=== PATIENT | male | born 1950 | race Hispanic/Latino ===

== ENCOUNTER 2024-01-03 11:15 | Observation (INO) | payer MEDICARE, OTHER ==
[~2024-01-03] VITALS: Ht 160 cm; Wt 99.8 kg
[2024-01-03 12:17] LABS: BASOPHILS # (AUTO) 0.04 K/uL (0.00-0.20); BASOPHILS % (AUTO) 0.5 % (0.0-5.0); EOSINOPHILS # (AUTO) 0.16 K/uL (0.00-0.70); EOSINOPHILS % (AUTO) 1.9 % (0.0-8.0); HEMATOCRIT 38.7 % (42-54); LYMPHOCYTES # (AUTO) 2.6 K/uL (1.0-4.8); LYMPHOCYTES % (AUTO) 30.5 % (21.0-51.0); MEAN CORPUSCULAR HEMOGLOBIN 31.4 pg (27.0-33.0); MEAN CORPUSCULAR HGB CONC 35.1 g/dL (32.0-36.0); MEAN CORPUSCULAR VOLUME 89.4 fL (79-99); MONOCYTES # (AUTO) 0.6 K/uL (0.1-1.0); MONOCYTES % (AUTO) 6.6 % (3.0-13.0); NEUTROPHILS % (AUTO) 59.3 % (40.0-77.0); PLATELET COUNT (AUTO) 280 K/uL (130-400); RED BLOOD CELL COUNT(AUTO) 4.33 MIL/uL (4.50-6.20); WHITE BLOOD COUNT (AUTO) 8.4 K/uL (4.8-10.8)
[2024-01-03 12:20] LABS: ABG BASE EXCESS -0.2 mmol/L (-2.0-3.0); ABG HCO3 24.7 mmol/L (21.0-28.0); ABG OXYGEN SATURATION 96.7 % (95.0-99.0); ABG PCO2 42 mmHg (35-48); ABG PH 7.393 (7.35-7.450); PO2, ARTERIAL BG 88.5 mmHg (83.0-108.0); VENT MODE, BG RA (ROOM AIR)
[2024-01-03] MEDS: 0.9%NACL 1000ML 1,000 ML IV SCH ×2 (12:20→16:07)
[2024-01-03 12:36] LABS: ALBUMIN 3.8 g/dL (3.5-5.0); BILIRUBIN,TOTAL 0.6 mg/dL (0.2-1.0); CREATININE 1.1 mg/dL (0.5-1.5); MAGNESIUM 1.9 mg/dL (1.80-2.40); POTASSIUM 3.5 mmol/L (3.5-5.1); TOTAL PROTEIN, SERUM 6.9 g/dL (6.0-8.3)
[2024-01-03 12:56] LABS: APPEARANCE,URINE CLEAR (CLEAR); BILIRUBIN,URINE NEGATIVE (NEGATIVE); COLOR,URINE LIGHT-YELLOW (YELLOW); GLUCOSE, URINE (UA) >=1000 mg/dL (NEGATIVE); KETONES,URINE NEGATIVE (NEGATIVE); LEUKOCYTE ESTERASE ,URINE NEGATIVE Leu/uL (NEGATIVE); NITRATE,URINE NEGATIVE (NEGATIVE); OCCULT BLOOD,URINE NEGATIVE (NEGATIVE); PROTEIN,URINE 10 mg/dL (NEGATIVE); UROBILINOGEN,URINE 0.2 mg/dL (0.2-1.0)
[2024-01-03 13:06] LABS: ADD UA MICROSCOPIC YES
[2024-01-03 13:38] LABS: RAPID GROUP A STREP negative (NEGATIVE)
[2024-01-03 13:48] LABS: COVID19 (SARS ANTIGEN RAPID) PRESUMPTIVE NEGATIVE (NEGATIVE); INFLUENZA TYPE A Negative For Type A (NEGATIVE); INFLUENZA TYPE B Negative For Type B (NEGATIVE)
[2024-01-03 14:20] LABS: MUCUS,URINE RARE LPF (None Seen); SQUAMOUS EPITHELIAL CELL,UR RARE /HPF (0-2)
[2024-01-03] MEDS ORDERED: ACETAMINOPHEN 500 MG TABLET PO PRN (15:00)
[2024-01-03] MEDS ORDERED: HYDRALAZINE 20MG/ML VIAL IV PRN (15:00)
[2024-01-03] MEDS ORDERED: IPRATROPIUM/ALBUTEROL SULFATE 3 ML SOLUTION IH PRN (15:00)
[2024-01-03] MEDS ORDERED: ONDANSETRON 4MG INJ IVP PRN (15:00)
[2024-01-03 15:12] LABS: INR <= 0.93 (0.85-1.15); PROTHROMBIN TIME 10.5 SEC (9.6-11.6)
[2024-01-03 15:13] LABS: HEMOGLOBIN A1C 8.5 % (4.0-6.0); PARTIAL THROMBOPLASTIN TIME 27.2 SEC (26.3-35.5)
[2024-01-03 15:21] LABS: THYROID STIMULATING HORMONE 2.25 uIU/mL (0.36-3.74)
[2024-01-03] MEDS ORDERED: POTASSIUM CHLORIDE 20MEQ/100ML 100 ML IV PRN (16:30)
[2024-01-03] MEDS ORDERED: POTASSIUM CHLORIDE 10% ELIXIR 20 MEQ/15 ML UDCUP PO PRN (16:30)
[2024-01-03] MEDS: INSULIN HUMULIN R 100 UNIT/ML 3ML SQ SCH (16:37)
[2024-01-03] MEDS: LOSARTAN 50 MG TABLET PO SCH (17:20)
[2024-01-03] MEDS: AMLODIPINE 5 MG TAB PO SCH (17:20)
[2024-01-03] MEDS ORDERED: AMLO-257 PO (17:35)
[2024-01-03] MEDS ORDERED: LOSA100T59 PO (17:35)
[2024-01-03] MEDS ORDERED: BRIM5DRO21 OP (17:35)
[2024-01-03] MEDS ORDERED: TRAM50TA4 PO (17:35)
[2024-01-03] MEDS ORDERED: SITA100T12 PO (17:35)
[2024-01-03] MEDS ORDERED: PRAV40TA3 PO (17:35)
[2024-01-03] MEDS ORDERED: METO50TA18 PO (17:35)
[2024-01-03] MEDS ORDERED: METF-527 PO (17:35)
[2024-01-03] MEDS ORDERED: HYDR25TA PO (17:35)
[2024-01-03 19:30] VITALS: O2SAT 97
[2024-01-03 20:18] VITALS: BP 148/82; PULSE 60; RESP 18
[2024-01-03] MEDS: MAGNESIUM 2GM PREMIX 50ML 50 ML IV SCH (20:20)
[2024-01-03] MEDS: KCL 20 MEQ ERTAB PO PRN (20:21)
[2024-01-03] MEDS: PANTOPRAZOLE 40 MG TAB DR PO SCH (21:15)
[2024-01-03] MEDS: INSULIN GLARGINE 100 UNITS/ML 10 ML VIAL SQ SCH (21:17)
[2024-01-04 00:23] VITALS: BP 141/76; PULSE 60; RESP 18
[2024-01-04] MEDS ORDERED: BISACODYL 10 MG SUPP.RECT RC PRN (00:30)
[2024-01-04] MEDS: BISACODYL 10 MG SUPP.RECT RC ONE (00:55)
[2024-01-04 03:51] LABS: BASOPHILS # (AUTO) 0.05 K/uL (0.00-0.20); BASOPHILS % (AUTO) 0.5 % (0.0-5.0); EOSINOPHILS # (AUTO) 0.14 K/uL (0.00-0.70); EOSINOPHILS % (AUTO) 1.5 % (0.0-8.0); HEMATOCRIT 33.1 % (42-54); IMMATURE GRANULOCYTE ABSOLUTE 0.09 K/uL (0-1); LYMPHOCYTES # (AUTO) 3.3 K/uL (1.0-4.8); LYMPHOCYTES % (AUTO) 34.7 % (21.0-51.0); MEAN CORPUSCULAR HEMOGLOBIN 31.4 pg (27.0-33.0); MEAN CORPUSCULAR HGB CONC 34.7 g/dL (32.0-36.0); MEAN CORPUSCULAR VOLUME 90.4 fL (79-99); MONOCYTES # (AUTO) 0.9 K/uL (0.1-1.0); NEUTROPHILS % (AUTO) 53.3 % (40.0-77.0); PLATELET COUNT (AUTO) 263 K/uL (130-400); RED BLOOD CELL COUNT(AUTO) 3.66 MIL/uL (4.50-6.20); RED CELL DISTRIBUTION WIDTH 13.1 % (11.0-15.5); WHITE BLOOD COUNT (AUTO) 9.4 K/uL (4.8-10.8)
[2024-01-04 04:07] VITALS: BP 141/76; PULSE 55; RESP 18
[2024-01-04 04:23] LABS: ALBUMIN 3.2 g/dL (3.5-5.0); BILIRUBIN,TOTAL 0.9 mg/dL (0.2-1.0); MAGNESIUM 2.3 mg/dL (1.80-2.40); POTASSIUM 3.7 mmol/L (3.5-5.1); TOTAL PROTEIN, SERUM 6.5 g/dL (6.0-8.3)
[2024-01-04 07:45] VITALS: O2SAT 97
[2024-01-04 08:24] VITALS: BP 149/84; PULSE 58; RESP 18
[2024-01-04 12:30] VITALS: BP 114/87; PULSE 67; RESP 18
[2024-01-04] MEDS: REGADENOSON 0.4 MG/5 ML PF SYG IVP SCH (12:45)
[2024-01-04 16:37] VITALS: BP 114/81; PULSE 67; RESP 18
== END 2024-01-04 18:20 | disposition home or self-care (01) ==
LOC: EDH 11:15 → EDHIP 14:30 → INTOOBSV 14:30 → 2DH 18:26
PROVIDERS: ADMIT Internal Medicine; ATTEND Internal Medicine
DX: R00.1 Bradycardia, unspecified (principal); Z20.822 Contact with and (suspected) exposure to COVID-19; R11.2 Nausea with vomiting, unspecified; R42 Dizziness and giddiness; R94.31 Abnormal electrocardiogram [ECG] [EKG]; E66.9 Obesity, unspecified; E78.5 Hyperlipidemia, unspecified; J98.6 Disorders of diaphragm; E11.65 Type 2 diabetes mellitus with hyperglycemia; R55 Syncope and collapse; I10 Essential (primary) hypertension; I44.0 Atrioventricular block, first degree; R61 Generalized hyperhidrosis; I21.19 ST elevation (STEMI) myocardial infarction involving other coronary artery of inferior wall; Z68.39 Body mass index [BMI] 39.0-39.9, adult
CPT/HCPCS: 99285; 93306; 96361; 93880; 96365; 70450; 71045; 96366; 87426; 83036; 84443; 82550; 83735 ×2; 84484 ×3; 80053 ×2; 82803; 83690; 85025 ×2; 85610; 85730; 87880; 87804 ×2; 82948 ×6; 82010; 86140; 81001; 36415 ×2; 93005; 84145; 78452; 93017; J1815 ×4; J3475; G0378; J2785; A9500 ×2; 96372; 96374

== ENCOUNTER → 2025-04-09 | Outpatient (CLI) | payer MEDICARE ==
[~2025-04-09] MED LIST: AMLO-257 PO; BRIM5DRO21 OP; HYDR25TA PO; LOSA100T59 PO; METF-527 PO; PRAV40TA62 PO; SITA100T12 PO; TRAM50TA4 PO
--- NOTE | 2025-04-09 09:26 | HMCIMG ---
DEXA BONE DENSITY SURVEY HISTORY: Osteoporosis COMPARISON: None FINDINGS: Bone densitometry study was performed. Bone mineral density of the lumbar spine is 1.180 gram per centimeter square which corresponds to a T score of 0.8 and a Z score of 1.9. Bone mineral density of the left hip is 1.038 grams per centimeter square which corresponds to a T score of -0.1 and a Z score of 0.7. IMPRESSION: 1. Normal bone mineral density of the lumbar spine and left hip.
== END | disposition home or self-care (01) ==
LOC: RAH 07:44
PROVIDERS: ATTEND Family Medicine
DX: M81.0 Age-related osteoporosis without current pathological fracture (principal)
CPT/HCPCS: 77080